=== PATIENT | female | born 1960 | race Caucasian/White ===

== ENCOUNTER 2018-12-31 09:00 | Outpatient (CLI) | payer BC | END 2018-12-31 10:00 | disposition home or self-care (01) | LOC: D.MAMMO 09:00 | PROVIDERS: ATTEND Family Medicine | DX: Z12.31 Encounter for screening mammogram for malignant neoplasm of breast (principal) ==

== ENCOUNTER → 2019-01-27 09:27 | Outpatient (CLI) | payer BC ==
--- NOTE | 2019-01-28 13:29 | EC ---
PATIENT:ODILIA LOPEZ DATE OF SERVICE: 01/27/19 SEX: F MEDICAL RECORD: [id number] DATE OF : 56 [facility] AGE [facility] PAT[facility]: 58 ADMISSION DATE: 01/27/19 REFERRING PHYSICIAN: INTERPRETING PHYSICIAN: JIM BINGHAM MD ECHOCARDIOGRAM REPORT ECHO CHARGES 4 ECHO COMPLETE Date: 01/27/19 CLINICAL DIAGNOSIS: ANGINA/SOB/BRADYCARDIA/RAMOS ECHOCARDIOGRAPHIC MEASUREMENTS (adult normal given) AC root (d.<3.7cm) 2.8 cm LV Septum d (<1.2 cm> 1.1 cm Valve Excursion 1.7 cm LV Septum (systole) 1.4 cm Left Atria (s.<4.0cm> 4.7 cm LVPW d(<1.2cm) 1.0 cm RV (d.<2.3cm) 2.0 cm LVPW (sytole) 1.7 cm LV diastole(<5.6CM) 5.2 cm MV E-F(>70mm/sec) cm LV systole 3.5 cm LVOT Diameter 1.7 cm MV exc.(>10mm) cm Est.ejection fraction (50-75%) % DOPPLER: LVIT cm/sec A 48.0 cm/sec E 81.0 cm/sec LA cm/sec RVSP 22.0 mmHg LVOT 81.0 cm/sec AOP1/2T m/s Asc. Ao 174 cm/sec RVOT 89.0 cm/sec RA cm/sec PA 95.0 cm/sec AV Gradient Peak 12.1 mmHg AV Mean 6.7 mmHg AV Area 1.1 cm MV Gradient Peak 3.1 mmHg MV Mean 1.1 mmHg MV Area cm COMMENTS: OP - HC Transplanter: 1 LIDIA PATTON Senior Controls Technician: 1 Dr. Bingham TAPE# PACS Pericardial Effusion N DATE OF SERVICE: ECHOCARDIOGRAM FINDINGS: 1. Left ventricular chamber size is within normal limits. Left ventricular systolic function is lower limits of normal at 50%. 2. Left atrium is enlarged at 4.7 cm. Right atrium and right ventricular chamber sizes are within normal limits. 3. Valvular structures have normal structure and motion. ECHOCARDIOGRAM REPORT [id number] ODILIA LOPEZ 4. Doppler interrogation reveals trace aortic insufficiency, trace mitral regurgitation, trace tricuspid regurgitation, no other valvular insufficiency or stenosis. 5. No evidence of pericardial effusion or left ventricular thrombus. Pulmonary systolic pressure is normal estimated at 22 mmHg. TRANSINT:[id number] Voice Confirmation ID: [id number] DOCUMENT ID: [id number] JIM BINGHAM MD at 1329 CC: [id number] DICTATION DATE: 01/27/19 1416 MANAGER FIXED INCOME: 01/27/19 1424 DEP CLI 01/27/19 [place] [id number] [place] [id number]
--- NOTE | 2019-01-28 13:29 | ST ---
PATIENT:ODILIA LOPEZ MEDICAL RECORD: [id number] SEX: F LOCATION:[facility] ORDER #: ADMISSION DATE: 01/27/19 AGE OF PATIENT: 58 REFERRING PHYSICIAN: INTERPRETING PHYSICIAN: JIM SHERMAN MD DATE OF SERVICE: 01/27/2019 PROCEDURE: Nuclear stress test. INDICATIONS: Angina, shortness of breath. She was exercised on standard Lexiscan protocol with 33 mCi of sestamibi injected at peak stress, 10 mCi used previously for rest images. FINDINGS: Gated SPECT reveals preserved ejection fraction, but mildly depressed at 46% with good wall motion and thickening and brightening throughout all segments. SPECT imaging: Cardiolite was used as myocardial perfusion agent. There is reversible ischemia laterally as well as apically. The degree of reversibility is moderate. The amount of myocardium involved is moderate. OVERALL IMPRESSION: 1. This is an abnormal nuclear stress test, intermediate risk with reversible ischemia laterally and apically. 2. Gated SPECT reveals mildly depressed at 46% suggestive of hemodynamically significant coronary artery disease. TRANSINT:[id number] Voice Confirmation ID: [id number] DOCUMENT ID: [id number] JIM SHERMAN MD at 1329 CC: STANTON PULIDO MD [id number] DICTATION DATE: 01/27/19 1523 MANGLE TENDER CLOTH: 01/28/19 0521 [facility] CLI 01/27/19 [place] [id number] [place] [address]
== END | disposition home or self-care (01) ==
LOC: D.HCCECHO 09:27
PROVIDERS: ATTEND Internal Medicine Interventional Cardiology
DX: I20.9 Angina pectoris, unspecified (principal); R06.02 Shortness of breath

== ENCOUNTER → 2020-08-03 23:40 | Outpatient (CLI) | payer BC | END | disposition home or self-care (01) | LOC: D.MAMMO 10:45 | PROVIDERS: ATTEND Family Medicine | DX: Z12.31 Encounter for screening mammogram for malignant neoplasm of breast (principal) ==